=== PATIENT | female | born 1950 | race Two or more races ===

== ENCOUNTER 2019-04-12 07:09 | Day surgery (SDC) | payer OTHER | END 2019-04-12 13:20 | disposition home or self-care (01) | LOC: AMB-ENDOS 07:09 | DX: K57.32 Diverticulitis of large intestine without perforation or abscess without bleeding (principal); N32.1 Vesicointestinal fistula ==

== ENCOUNTER 2019-05-16 11:45 | Inpatient (IN) | payer OTHER ==
[~2019-05-16] VITALS: Ht 157.5 cm; Wt 83.9 kg
[2019-05-16] MEDS ORDERED: INDERAL LA80 MG PO (12:38)
[2019-05-16] MEDS ORDERED: LISINOP PO (12:38)
[2019-05-16] MEDS ORDERED: SYNTHROID75 MCG PO (12:39)
[2019-05-16] MEDS ORDERED: GABAPENTIN800 MG PO (12:39)
[2019-05-16] MEDS ORDERED: GABAPENTIN400 MG PO (12:39)
[2019-05-16] MEDS ORDERED: CLONAZEPAM1 M1 PO (12:40)
[2019-05-16] MEDS ORDERED: INSULIN PO (12:41)
[2019-05-16] MEDS ORDERED: INTESTINEX680 M1 PO (12:42)
[2019-05-16] MEDS ORDERED: INSULIN (12:42)
[2019-05-16] MEDS ORDERED: BENTYL10 MG/1 ML IM (12:43)
[2019-05-23] MEDS ORDERED: LISINOPRIL40 MG PO (12:55)
== END 2019-06-02 18:03 | disposition home or self-care (01) | DRG 654 ==
LOC: O/R 05-23 09:26 → SURH 05-23 09:26
PROVIDERS: ADMIT Colon & Rectal Surgery
PROC: 0DTN0ZZ Resection of Sigmoid Colon, Open Approach (ICD-10-PCS; 2019-05-23)
PROC: 0WUF07Z Supplement Abdominal Wall with Autologous Tissue Substitute, Open Approach (ICD-10-PCS; 2019-05-23)
PROC: 0D1B0Z4 Bypass Ileum to Cutaneous, Open Approach (ICD-10-PCS; 2019-05-23)
PROC: 0DJD8ZZ Inspection of Lower Intestinal Tract, Via Natural or Artificial Opening Endoscopic (ICD-10-PCS; 2019-05-23)
PROC: 0TQB0ZZ Repair Bladder, Open Approach (ICD-10-PCS; principal; 2019-05-23 19:00)
PROC: 0DH67UZ Insertion of Feeding Device into Stomach, Via Natural or Artificial Opening (ICD-10-PCS; 2019-05-26)
PROC: 3E0G76Z Introduction of Nutritional Substance into Upper GI, Via Natural or Artificial Opening (ICD-10-PCS; 2019-05-26)
PROC: 02HV33Z Insertion of Infusion Device into Superior Vena Cava, Percutaneous Approach (ICD-10-PCS; 2019-05-29)
DX: N32.1 Vesicointestinal fistula (principal); K57.32 Diverticulitis of large intestine without perforation or abscess without bleeding; K92.1 Melena; N99.71 Accidental puncture and laceration of a genitourinary system organ or structure during a genitourinary system procedure; E44.0 Moderate protein-calorie malnutrition; K56.51 Intestinal adhesions [bands], with partial obstruction; I10 Essential (primary) hypertension; E11.9 Type 2 diabetes mellitus without complications; Z79.4 Long term (current) use of insulin; G89.18 Other acute postprocedural pain; R11.0 Nausea

== ENCOUNTER 2019-06-23 22:15 | Inpatient (IN) | payer OTHER ==
[~2019-06-23] VITALS: Ht 157.5 cm; Wt 74.8 kg
[~2019-06-23 22:15] MED LIST: BENTYL10 MG/1 ML IM; CLONAZEPAM1 M1 PO; GABAPENTIN400 MG PO; GABAPENTIN800 MG PO; INDERAL LA80 MG PO; INSULIN; INSULIN PO; INTESTINEX680 M1 PO; LISINOP PO; LISINOPRIL40 MG PO; SYNTHROID75 MCG PO
--- NOTE | 2019-06-23 22:46 | NUR ---
PACIENTE ALERTA Y ORIENTADA PRO HOA ESFERAS EN COMPANIA DE FAMILIAR. PACIENTE REFIERE DEBILIDAD Y DIFICULTAD RESPIRATORIA. PACIENTE OPERADA HACE UN MES POR DR. BATISTA POR DIVERTICULOS, PT CON ILEOSTOMIA. FAMILIAR REFIERE ILEOSTOMIA INFECTADA CON SUPURACION BLANCUZCA. PACIENTE SE OBSERVA PALIDA. SE REALIZA EKG Y SE PRESENTA A DR. OMER. PACIENTE SE CONECTA A MONITOR CARDIACO PARA MONITOREO.
--- NOTE | 2019-06-23 23:38 | NUR ---
SE RECIBE PACIENTE DE TURNO ANTERIOR FEMENINA DE 68 ANOS EN UNIDAD DE CP,CAMA #18. PACIENTE EN COMPANIA DE FAMILIAR. CONECTADA A MONITOR CARDIACO Y OXIMETRIA DE PULSO CONTINUO.SE OBSERVA CON BUEN PATRON RESPIRATORIO. OSTA EVALUA PACIENTE Y ORDENA TRATAMIENTO MEDICO DEL CUAL SE ORIENTA PACIENTE Y FAMILIAR,AMBAS REFIEREN COMPRENDER. SE COLECTAN MUESTRAS DE LABORATORIOS,LAS CUALES SON ROTULADAS Y ENVIADAS PARA ANALISIS. SE ADMINISTRAN MEDICAMENTOS MARIE ORDEN MEDICA,BAJO MEDIDAS ASEPTICAS.PACIENTE NO PRESENTA REACCION ADVERSA.SE NOTIFICA ABG'S A PERSONAL DE TERAPIA RESPIRATORIA . SE NOTIFICA ESTUDIO CT DE PECHO Y PLACA A PERSONAL DE TURNO. PACIENTE PRESENTA HERIDA EN ABDOMEN,SE OBSERVA AREA LIMPIA Y SECA.
--- NOTE | 2019-06-24 05:50 | NUR ---
SE ORIENTA PACIENTE Y FAMILIAR SOBRE ORDEN MEDICA POR ,AMBAS REFIEREN COMPRENDER. SE ADMINISTRAN MEDICAMENTOS MARIE ORDEN MEDICA SIGUIENDO MEDIDAS ASEPTICAS. PACIENTE NO PRESENTA REACCION ADVERSA. SE INSERTA SONDA URINARIA BAJO MEDIDAS ASEPTICAS Y ESTERILES.PACIENTE TOLERA PROCEDIMIENTO. SE MATIENE BAJO OBSERVACION POR CAMBIOS.
--- NOTE | 2019-06-24 08:31 | NUR ---
SE RECIBE PT ALERTA Y ORIENTADA X3 ESFERAS EN CQAMA 18 CPU, CONECTADA A MONITOR CARDIACO Y OXIMETRIA DE PULSO CONTINUA. PT CON 0.9NSS BAJNADO A 150ML/HR POR VENOPUNCION EN BRAZO LT. AREA DE VENOPUNCION SE OBSERVA RENUKA DE EDEMA Y ERITEMA. PT CON ILEOSTOMIA, ABDOMEN BLANDO, DEPRESIBLE. SE OBSERVA HERIDA QUIRURGICA EN AREA DE ABDOMEN ABIERTA, SUPURANDO SECRECIONES PARVEZ. PT CON PEOPLES A GRAVEDAD. SE ORIENTA A PTE SOBRE TX, LA CUAL REFIERE ENTENDER. SE LE COLECTAN MUESTRAS BAJO MEDIDAS ASEPTICAS Y SE ENVIAN A LABORATORIO. SE MANTIENE EN OBSERVACION POR CAMBIOS EN CONDICION.
[2019-07-03] MEDS ORDERED: CIPRO500 MG PO (14:03)
[2019-07-03] MEDS ORDERED: IMODIUM A-D2 M2 PO (14:05)
[2019-07-04] MEDS ORDERED: BACTRIM DS TAB1 EACH PO (07:59)
== END 2019-07-03 17:32 | disposition home or self-care (01) | DRG 641 ==
LOC: ER 22:15 → SURH 06-24 13:10
PROVIDERS: ADMIT Colon & Rectal Surgery
PROC: 02HV33Z Insertion of Infusion Device into Superior Vena Cava, Percutaneous Approach (ICD-10-PCS; principal; 2019-06-25)
DX: E86.0 Dehydration (principal); N17.8 Other acute kidney failure; T81.49XA Infection following a procedure, other surgical site, initial encounter; K57.32 Diverticulitis of large intestine without perforation or abscess without bleeding; N32.1 Vesicointestinal fistula; N39.0 Urinary tract infection, site not specified; I13.10 Hypertensive heart and chronic kidney disease without heart failure, with stage 1 through stage 4 chronic kidney disease, or unspecified chronic kidney disease; N18.9 Chronic kidney disease, unspecified; E86.1 Hypovolemia; E87.1 Hypo-osmolality and hyponatremia; E11.9 Type 2 diabetes mellitus without complications; K62.4 Stenosis of anus and rectum; Z93.2 Ileostomy status; B96.29 Other Escherichia coli [E. coli] as the cause of diseases classified elsewhere; B95.2 Enterococcus as the cause of diseases classified elsewhere; B96.5 Pseudomonas (aeruginosa) (mallei) (pseudomallei) as the cause of diseases classified elsewhere; B96.1 Klebsiella pneumoniae [K. pneumoniae] as the cause of diseases classified elsewhere

== ENCOUNTER 2019-08-31 11:27 | Inpatient (IN) | payer OTHER ==
[~2019-08-31] VITALS: Ht 157.5 cm; Wt 71.2 kg
[~2019-08-31 11:27] MED LIST changes: +BACTRIM DS TAB1 EACH PO; +CIPRO500 MG PO; +IMODIUM A-D2 M2 PO
[2019-09-20] MEDS ORDERED: CYMBALTA20 MG PO (11:49)
== END 2019-09-29 15:14 | disposition home or self-care (01) | DRG 330 ==
LOC: O/R 09-26 07:33 → SURG 09-26 07:33
PROVIDERS: ADMIT Colon & Rectal Surgery
PROC: 0DQB4ZZ Repair Ileum, Percutaneous Endoscopic Approach (ICD-10-PCS; principal; 2019-09-26 14:00)
DX: Z43.2 Encounter for attention to ileostomy (principal); K57.32 Diverticulitis of large intestine without perforation or abscess without bleeding; I10 Essential (primary) hypertension; E11.9 Type 2 diabetes mellitus without complications; Z79.4 Long term (current) use of insulin